=== PATIENT | female | born 1995 | race Caucasian/White ===

== ENCOUNTER 2022-03-22 19:56 | Emergency (ER) | payer BC, SELFPAY ==
[2022-03-22] VITALS (7 sets, daily range): BP systolic 101–189; BP diastolic 64–152; PULSE 69–80; RESP 16–18; TEMP 37.1; O2SAT 96–100; BMI 35.6
--- NOTE | 2022-03-22 21:05 | HMH.EDABDPAI ---
Discharge Plan Disposition Chief Complaint: Abdominal Pain Referrals Follow up/Referrals: Provider,Referral, MD [Primary Care Provider] - See instructions Clinical Impressions Clinical Impression: Abdominal pain Instructions Patient Instructions: DI for Acute Abdominal Pain Discharge ED Provider: Micheal Pate Abdominal Pain HPI General Chief Complaint: Abdominal Pain Stated Complaint: upper stomach issues Time Seen by Provider: 03/22/22 21:06 Mode of Arrival: Ambulatory Source of Information: Patient and Medical Record Limitations: No Limitations Description of Symptoms (Recalled from ER Triage Doc. by RN): PT reports to have had a slice of pizza and shortly after had what she believes is a gallbladder attack she reported that she started having pain in the epigastrig area and it grew in intensity until she vomited and had diarrhea. pt stated the pain was 10/10 but has subsided to a 5/10. the pt states she has had 4 of these episodes since her verticle sleeve gasterectomy on 10/05/2021. the surgery was performed by DR Flaherty at [facility]. the pt stated she has not followed up with Krystina about the attacks. History of Present Illness HPI narrative: has episode of upper abd pain after eating - has recent wt loss surg - no fever complaint: abdominal pain Onset (ago): hour(s) Consistency: intermittent Location: RUQ Severity: moderate Quality: sharp Radiation: RUQ Context: history of similar episodes Associated symptoms: denies other symptoms Related Data Allergies Allergy/AdvReac Type Severity Reaction Status Date / Time No Known Allergies Allergy Verified 03/22/22 21:09 [facility] Social History Smoking Status: Never smoker alcohol intake: never current occupational status: employed Travel in the last 8 weeks: None ROS Obtained: Yes All systems reviewed & no additional complaints except as documented Physical Exam General General appearance: alert Head Head exam: normocephalic Eye Eye exam: Present PERRL and EOMI; Absent scleral icterus ENT ENT exam: Present mucous membranes moist Neck Neck exam: Present trachea midline Respiratory Respiratory exam: Present normal lung sounds bilaterally; Absent respiratory distress Cardiovascular Cardiovascular exam: Present regular rate Abdominal Exam Abdominal exam: Present soft, tenderness and Bedolla's sign; Absent guarding Abdominal tenderness: Present RUQ and moderate Extremities Exam Extremities exam: Present full ROM Back Exam Back exam: Absent CVA tenderness (R) Neurological Exam Neurological exam: Present alert, oriented X3 and CN II-XII intact Psychiatric Psychiatric exam: Present normal affect Skin Skin exam: Absent rash Medical Decision Making Medical Records Medical records reviewed: Yes I reviewed the patient's medical records. Eitan Inquiry Pt receiving controlled substance: No Vital Signs: 03/22/22 19:59 03/22/22 20:31 03/22/22 21:01 Temperature 98.7 F Temperature Source Oral Pulse Rate 69 74 Pulse Rate [Left] 75 Respiratory Rate 16 Blood Pressure 189/152 H 128/72 Blood Pressure [Right Radial Artery] 135/81 Blood Pressure Mean 91 Blood Pressure Mean [Right Radial Artery] 99 02 Sat by Pulse Oximetry 96 98 98 Oxygen Delivery Method Room Air 03/22/22 21:06 03/22/22 21:33 03/22/22 22:00 Temperature Temperature Source Pulse Rate 80 71 69 Pulse Rate [Left] Respiratory Rate Blood Pressure 131/75 101/64 L 122/82 Blood Pressure [Right Radial Artery] Blood Pressure Mean Blood Pressure Mean [Right Radial Artery] 02 Sat by Pulse Oximetry 98 100 100 Oxygen Delivery Method Room Air Room Air Room Air Lab Data Lab results reviewed: Yes I reviewed the patient's lab results. Lab Results 03/22/22 20:04: Urine Color Yellow, Urine Appearance Sl cloudy, Urine pH 6.0, Ur Specific Griffin >= 1.030, Urine Protein Negative, Urine Glucose (UA) Negative, Urine Ketones Negative, Urine
--- NOTE | 2022-03-22 21:14 | CT_ITS ---
PROCEDURE INFORMATION: Exam: CT Abdomen And Pelvis With Contrast Exam date and time: 03/22/2022 9:35 PM Age: 26 years old Clinical indication: Abdominal pain; Additional info: Abd pain TECHNIQUE: Imaging protocol: Computed tomography of the abdomen and pelvis with contrast. Radiation optimization: All CT scans at this facility use at least one of these dose optimization techniques: automated exposure control; mA and/or kV adjustment per patient size (includes targeted exams where dose is matched to clinical indication); or iterative reconstruction. Contrast material: ISOVUE; Contrast volume: 75 ml; Contrast route: IV; COMPARISON: No relevant prior studies available. FINDINGS: Liver: Normal. No mass. Gallbladder and bile ducts: No calcified stones. No ductal dilation. Pancreas: Normal enhancement. No ductal dilation. Spleen: No splenomegaly. Adrenal glands: No mass. Kidneys and ureters: No hydronephrosis. Stomach and bowel: Potential mild wall thickening of the transverse and descending colon which are decompressed and not well evaluated. Postsurgical changes to the stomach. No obstruction. Appendix: No evidence of appendicitis. Intraperitoneal space: No free air. No significant fluid collection. Vasculature: No abdominal aortic aneurysm. Lymph nodes: No enlarged lymph nodes. Urinary bladder: No acute abnormality. Reproductive: No acute abnormality. Bones/joints: No acute fracture. Soft tissues: No soft tissue swelling. IMPRESSION: Potential mild wall thickening of the transverse and descending colon which may be secondary to underdistention however subtle/early colitis should be clinically excluded.
[2022-03-22 21:22] LABS: Microscopic, Urine URINE MICROSCOPIC (MICROSCOPIC)
[2022-03-22 21:24] LABS: Basophils # 0.1 K/mm3 (0-0.2); Basophils % 0.8 % (0.1-2.0); Eosinophils # 0.1 K/mm3 (0.0-0.4); Eosinophils % 1.3 % (0.1-12.0); Hematocrit 39.2 % (37.0-47.0); Hemoglobin 13.3 g/dL (12.2-16.2); Lymphocytes # 2.5 K/mm3 (0.7-4.5); Lymphocytes % 27.3 % (10-50); Mean Corpuscular Hemoglobin 28.1 pg (27.0-31.2); Mean Corpuscular Volume 82.7 fl (81-99); Mean Platelet Volume 9.3 fl (7.4-10.4); Monocytes # 0.5 K/mm3 (0.1-1.0); Monocytes % 5.5 % (1.7-9.3); Neutrophils % 65.2 % (37.0-80.0); Platelet Count 246 K/mm3 (142-424); Red Blood Count 4.75 M/mm3 (4.20-5.40); Red Cell Distribution Width 13.7 % (11.5-17.5); White Blood Count 9.2 K/mm3 (4.8-10.8)
[2022-03-22 21:26] LABS: Appearance,Urine SL CLOUDY (Clear); Bilirubin,Urine Negative (Negative); Blood, Urine TRACE-I (Negative); Color,Urine YELLOW (Yellow); Glucose,Urine (UA) Negative (Negative); Ketones,Urine Negative (Negative); Leukocyte Esterase,Urine Negative (Negative); Nitrate,Urine Negative (Negative); Protein,Urine Negative (Negative); Specific Gravity, Urine >= 1.030 (1.005-1.030)
[2022-03-22 21:29] LABS: Urine Pregnancy, HCG Qual. Negative (Negative)
[2022-03-22 21:35] LABS: Chloride 105 mmol/L (98-107); Potassium 4.1 mmoL/L (3.5-5.1); Sodium 140 mmol/L (136-145)
[2022-03-22 21:38] LABS: Alanine Aminotransferase 16 U/L (12-78); Albumin Level 4.7 g/dl (3.5-5.0); Albumin/Globulin Ratio 1.4 (1.1-1.8); Alkaline Phosphatase 96 U/L (38-126); Amylase 61 U/L (30-110); Anion Gap 17.1 mEq/L (5-15); Aspartate Amino Transferase 38 U/L (14-36); Bilirubin,Total 0.6 mg/dl (0.2-1.3); Blood Urea Nitrogen 11 mg/dl (7-17); Calcium 8.8 mg/dl (8.4-10.2); Carbon Dioxide 22 mmol/L (22.0-30.0); Creatinine Clearance Estimated 236 mL/min (50-200); Estimated Glomerular Filt Rate 148 ml/min (>60); GFR (African American) 179 ML/MIN (>60); Globulin 3.3 g/dL (1.3-3.2); Glucose 93 mg/dl (74-100); Lipase 47 U/L (23-300)
--- NOTE | 2022-03-22 21:47 | PC.NURSE ---
pt return from ct scan
[2022-03-22 21:57] LABS: RBC,Urine Occasional #/hpf (0-3); Squamous Epithelial Cell,Urine Occasional #/hpf (0-5)
== END 2022-03-22 23:06 | disposition home or self-care (01) ==
PROVIDERS: Emergency Provider Emergency Medicine
DX: R10.9 Unspecified abdominal pain (principal)
CPT/HCPCS: 74177; 80053; 81001; 81025; 82150; 83690; 85025; 96365; 99284; Q9967

== ENCOUNTER → 2022-11-22 12:26 | Outpatient (CLI) | payer BC, SELFPAY ==
[2022-11-22 12:49] LABS: Alanine Aminotransferase 18 U/L (12-78); Albumin Level 4.8 g/dl (3.5-5.0); Albumin/Globulin Ratio 1.7 (1.1-1.8); Alkaline Phosphatase 79 U/L (38-126); Anion Gap 17.6 mEq/L (5-15); Aspartate Amino Transferase 28 U/L (14-36); Bilirubin,Total 1.5 mg/dl (0.2-1.3); Blood Urea Nitrogen 9 mg/dl (7-17); Calcium 9.5 mg/dl (8.4-10.2); Carbon Dioxide 25 mmol/L (22.0-30.0); Chloride 103 mmol/L (98-107); Chol/HDL Ratio 3.3 (1-3.5); Cholesterol 143 mg/dl (140-200); Estimated Glomerular Filt Rate 119 ml/min (>60); GFR (African American) 144 ML/MIN (>60); Globulin 2.9 g/dL (1.3-3.2); Glucose 90 mg/dl (74-100); HDL Cholesterol 44 mg/dl (40-60); Potassium 4.6 mmoL/L (3.5-5.1); Sodium 141 mmol/L (136-145); Total Protein,Serum 7.7 g/dl (6.3-8.2); Triglycerides 79 mg/dl (30-150); VLDL Cholesterol 16 mg/dL (0-40)
[2022-11-22 12:57] LABS: Basophils % 0.2 % (0.1-2.0); Eosinophils % 0.2 % (0.1-12.0); Hematocrit 39.2 % (37.0-47.0); Hemoglobin 13.2 g/dL (12.2-16.2); Lymphocytes # 1.5 K/mm3 (0.7-4.5); Lymphocytes % 16.6 % (10-50); Mean Corpuscular HGB Conc 33.5 g/dL (31.8-35.4); Mean Corpuscular Hemoglobin 28.3 pg (27.0-31.2); Mean Corpuscular Volume 84.4 fl (81-99); Mean Platelet Volume 9.4 fl (7.4-10.4); Monocytes # 0.3 K/mm3 (0.1-1.0); Monocytes % 3.3 % (1.7-9.3); Neutrophils # 7.4 K/mm3 (1.8-7.8); Neutrophils % 79.7 % (37.0-80.0); Platelet Count 210 K/mm3 (142-424); Red Blood Count 4.65 M/mm3 (4.20-5.40); Red Cell Distribution Width 13.4 % (11.5-17.5); White Blood Count 9.3 K/mm3 (4.8-10.8)
[2022-11-22 13:01] LABS: Direct LDL Cholesterol 75.06 mg/dL (100-129)
[2022-11-22 13:02] LABS: Hemoglobin A1C 4.2 % (4.0-6.0)
[2022-11-22 13:17] LABS: Thyroid Stimulating Hormone 0.95 uIU/mL (0.465-4.68)
[2022-11-22 13:36] LABS: Vitamin B12 801 pg/mL (239-931)
== END ==
PROVIDERS: PCP Nurse Practitioner Family; Visit Provider Nurse Practitioner Family
DX: R10.9 Unspecified abdominal pain (principal); R53.83 Other fatigue; E66.3 Overweight; F41.9 Anxiety disorder, unspecified; Z68.29 Body mass index [BMI] 29.0-29.9, adult; Z79.899 Other long term (current) drug therapy
CPT/HCPCS: 80053; 80061; 82306; 82607; 83036; 84443; 85025

== ENCOUNTER → 2022-11-25 08:25 | Outpatient (CLI) | payer BC, SELFPAY ==
[2022-11-25 08:33] LABS: Adenovirus F 40/41, stool Not Detected (NotDetected); Astrovirus Not Detected (NotDetected); Campylobacter Not Detected (NotDetected); Clostridium Difficile A/B, PCR Not Detected (NotDetected); Cryptosporidium Not Detected (NotDetected); Cyclospora Cayetanesis Not Detected (NotDetected); Entamoeba histolytica Not Detected (NotDetected); Enteroaggregative E coli Not Detected (NotDetected); Enteropathogenic E coli Not Detected (NotDetected); Enterotoxigenic E coli Not Detected (NotDetected); Giardia lamblia Not Detected (NotDetected); Norovirus Not Detected (NotDetected); Plesimonas Shigalloides, PCR Not Detected (NotDetected); Rotavirus A Not Detected (NotDetected); Salmonella, PCR Not Detected (NotDetected); Sapovirus Not Detected (NotDetected); Shiga-like toxin E coli Not Detected (NotDetected); Shigella Enterovasive E coli Not Detected (NotDetected); Vibrio Cholerae Not Detected (NotDetected); Vibrio, PCR Not Detected (NotDetected); Yersinia Entercolitica, PCR Not Detected (NotDetected)
== END ==
PROVIDERS: PCP Nurse Practitioner Family; Visit Provider Nurse Practitioner Family
DX: R10.9 Unspecified abdominal pain (principal)
CPT/HCPCS: 87507

== ENCOUNTER 2022-11-25 08:52 | Emergency (ER) | payer BC, SELFPAY ==
[2022-11-25] VITALS (10 sets, daily range): BP systolic 107–132; BP diastolic 70–88; PULSE 66–77; RESP 16–20; TEMP 36.4–36.6; O2SAT 98–100; BMI 29.0; BMI 30.2
--- NOTE | 2022-11-25 09:02 | EXP.UTC ---
Discharge Plan Disposition Patient Disposition: Still a Patient Condition: Fair Prescriptions Prescriptions: No Action colestipol 1 gram tablet PO venlafaxine [Effexor XR] 37.5 mg capsule,extended release 24hr 37.5 mg PO DAILY Qty: 30 2RF Referrals Follow up/Referrals: Carter Araya APRN [Primary Care Provider] - See instructions Clinical Impressions Clinical Impression: Abdominal pain, Elevated liver enzymes Discharge ED Provider: Arturo You [facility] [facility] [place] General Stated complaint: can't eat,Nausea,diarrhea Time Seen by Provider: 11/25/22 09:02 History of Present Illness Provider Complaint: She states that for the past 3 to 4 days she has noticed a yellowish tint to the whites of her eyes. She has had frequent nausea, early satiety, and poor appetite for the past several months after having her gall bladder removed. Related Data Home Medications Medication Instructions Recorded Confirmed colestipol 1 gram tablet tab PO 11/22/22 11/22/22 Previous Rx's Medication Instructions Recorded venlafaxine 37.5 mg 37.5 mg PO DAILY #30 caps 11/22/22 capsule,extended release 24 hr (Effexor XR) Allergies Allergy/AdvReac Type Severity Reaction Status Date / Time No Known Allergies Allergy Verified 11/22/22 09:34 [facility] Disclaimer: The information contained in this section may have been updated after the patient was seen, as this information can be updated by other users. Medical History Anxiety Depression Endometriosis Surgical History H/O gastric sleeve History of cholecystectomy Family History Other Diabetes FHx: mental illness Social History Smoking Status: Never smoker alcohol intake: never substance use type: denies use current occupational status: unemployed Travel in the last 8 weeks: None ROS Obtained: Yes All systems reviewed & no additional complaints except as documented Constitutional Constitutional: Denies chills, Denies fever(s) and Reports poor appetite ENT Ears, Nose, Mouth, and Throat: Denies dizziness and Denies sore throat Cardiovascular Cardiovascular: Denies dyspnea Respiratory Respiratory: Denies chest congestion, Denies cough and Denies dyspnea Gastrointestinal Gastrointestingal: Reports as per HPI Genitourinary Female Genitourinary: Denies difficulty voiding, Denies dysuria, Denies hematuria, Denies urinary frequency, Denies urinary incontinence, Denies urinary hesitancy and Denies urinary urgency Musculoskeletal Musculoskeletal: Denies arthralgias Integumentary/Breasts Skin/Breast: Reports as per HPI Neurologic Neurologic: Denies dizziness Physical Exam General General appearance: alert and in no apparent distress Head Head exam: atraumatic and normocephalic Eye Eye exam: Present normal appearance, PERRL and EOMI ENT ENT exam: Present normal exam, normal oropharynx, mucous membranes moist, TM's normal bilaterally and normal external ear exam Neck Neck exam: Present normal inspection, full ROM and trachea midline; Absent tenderness, meningismus or lymphadenopathy Chest Chest inspection: Present normal inspection and symmetric chest wall rise; Absent tenderness, rash or abscess Respiratory Respiratory exam: Present normal lung sounds bilaterally; Absent respiratory distress, wheezes or stridor Cardiovascular Cardiovascular exam: Present regular rate and normal rhythm; Absent irregular rhythm, systolic murmur, diastolic murmur or JVD Abdominal Exam Abdominal exam: Present soft and normal bowel sounds; Absent distention, tenderness, guarding, rebound, rigidity, psoas sign, obturator sign, heel tap sign, Bedolla's sign, Rovsing's sign or tenderness at McBurney's Point Extremities Exam Extremities exam: Present normal inspection and fu
[2022-11-25 09:25] LABS: Basophils % 0.3 % (0.1-2.0); Eosinophils # 0.1 K/mm3 (0.0-0.4); Eosinophils % 0.6 % (0.1-12.0); Hematocrit 37.8 % (37.0-47.0); Hemoglobin 12.7 g/dL (12.2-16.2); Lymphocytes # 1.8 K/mm3 (0.7-4.5); Lymphocytes % 20.2 % (10-50); Mean Corpuscular HGB Conc 33.6 g/dL (31.8-35.4); Mean Corpuscular Hemoglobin 27.8 pg (27.0-31.2); Mean Corpuscular Volume 82.8 fl (81-99); Mean Platelet Volume 9.3 fl (7.4-10.4); Monocytes # 0.4 K/mm3 (0.1-1.0); Neutrophils # 6.5 K/mm3 (1.8-7.8); Neutrophils % 74.8 % (37.0-80.0); Platelet Count 214 K/mm3 (142-424); Red Blood Count 4.56 M/mm3 (4.20-5.40); Red Cell Distribution Width 13.8 % (11.5-17.5); White Blood Count 8.6 K/mm3 (4.8-10.8)
[2022-11-25 09:37] LABS: Alanine Aminotransferase 470 U/L (12-78); Albumin Level 4.6 g/dl (3.5-5.0); Albumin/Globulin Ratio 1.5 (1.1-1.8); Alkaline Phosphatase 138 U/L (38-126); Amylase 85 U/L (30-110); Aspartate Amino Transferase 167 U/L (14-36); Bilirubin,Total 1.5 mg/dl (0.2-1.3); Blood Urea Nitrogen 12 mg/dl (7-17); Calcium 9.3 mg/dl (8.4-10.2); Carbon Dioxide 25 mmol/L (22.0-30.0); Chloride 102 mmol/L (98-107); Creatinine Clearance Estimated 169 mL/min (50-200); Estimated Glomerular Filt Rate 119 ml/min (>60); GFR (African American) 144 ML/MIN (>60); Glucose 89 mg/dl (74-100); Lipase 114 U/L (23-300); Sodium 141 mmol/L (136-145); Total Protein,Serum 7.6 g/dl (6.3-8.2)
--- NOTE | 2022-11-25 09:56 | HMH.EDGENADL ---
Discharge Plan Disposition Patient Disposition: Xfer Short-Term Hosp Condition: Fair Prescriptions Prescriptions: No Action colestipol 1 gram tablet PO venlafaxine [Effexor XR] 37.5 mg capsule,extended release 24hr 37.5 mg PO DAILY Qty: 30 2RF Referrals Follow up/Referrals: Carter Araya APRN [Primary Care Provider] - See instructions Clinical Impressions Clinical Impression: Abdominal pain, Elevated liver enzymes Stand Alone Forms Stand Alone Forms: Transfer Record - ED Instructions Patient Instructions: DI for Acute Abdominal Pain Discharge ED Provider: Arturo You General Adult HPI General Chief complaint: Abdominal Pain Stated complaint: can't eat,Nausea,diarrhea Time Seen by Provider: 11/25/22 09:02 Mode of Arrival: Ambulatory Source of Information: Patient Limitations: No Limitations Description of Symptoms (Recalled from ER Triage Doc. by RN): Patient states that for the past 4 days she hasn't been able to eat very well, has been nauseated, has diarrhea and upper back pain. States that at one point the whites of her eyes looked yellow. States she had her gallbladder removed in April and had these symptoms but it has gotten worse within the past 4 days. History of Present Illness HPI narrative: 27-year-old female presenting to the emergency department with upper abdominal pain, early satiety, diarrhea. Symptoms have gotten worse over the last few days but she has had them on and off for the last few weeks. She has cramping pain that is located in the upper abdomen, right side. Seems to radiate slightly toward her back. She feels full easily. She has lost about 20 pounds unintentionally. Feels unwell almost every time after she eats. She has had diarrhea, yellowish in color. She denies any nausea or vomiting. She had a cholecystectomy in April of last year at [facility]. Says it was a complicated procedure. Her liver enzymes were elevated afterward. She did not end up having an ERCP or MRCP. She does not take acetaminophen or drink alcohol. Related Data Home Medications Medication Instructions Recorded Confirmed colestipol 1 gram tablet tab PO 11/22/22 11/22/22 Previous Rx's Medication Instructions Recorded venlafaxine 37.5 mg 37.5 mg PO DAILY #30 caps 11/22/22 capsule,extended release 24 hr (Effexor XR) Allergies Allergy/AdvReac Type Severity Reaction Status Date / Time No Known Allergies Allergy Verified 11/22/22 09:34 [facility] Disclaimer: The information contained in this section may have been updated after the patient was seen, as this information can be updated by other users. Medical History Anxiety Depression Endometriosis Surgical History H/O gastric sleeve History of cholecystectomy Family History Other Diabetes FHx: mental illness Social History Smoking Status: Never smoker alcohol intake: never substance use type: denies use current occupational status: unemployed Travel in the last 8 weeks: None ROS Obtained: Yes All systems reviewed & no additional complaints except as documented Constitutional Constitutional: Denies chills, Denies fever(s) and Denies headache(s) ENT Ears, Nose, Mouth, and Throat: Denies headache(s), Denies neck pain and Denies sore throat Cardiovascular Cardiovascular: Denies chest pain, Denies dyspnea, Denies edema and Denies palpitations Respiratory Respiratory: Denies cough and Denies dyspnea Gastrointestinal Gastrointestingal: Reports abdominal pain and cramping; Denies diarrhea, nausea or vomiting Musculoskeletal Musculoskeletal: Denies back pain and Denies neck pain Integumentary/Breasts Skin/Breast: Denies redness and Reports jaundice Neurologic Neurologic: Denies head
--- NOTE | 2022-11-25 10:17 | PC.NURSE ---
KYLIE MAZARIEGOS at
--- NOTE | 2022-11-25 10:20 | CT_ITS ---
PROCEDURE INFORMATION: Exam: CT Abdomen And Pelvis With Contrast Exam date and time: 11/25/2022 10:42 AM Age: 27 years old Clinical indication: Abdominal pain; Generalized; Patient HX: PT had gallbladder surgery in april-- since has had pain, vomiting, diarrhea- lost 25lbs in the last 3 months; Additional info: Ruq pain, HX of ccy TECHNIQUE: Imaging protocol: Computed tomography of the abdomen and pelvis with contrast. Radiation optimization: All CT scans at this facility use at least one of these dose optimization techniques: automated exposure control; mA and/or kV adjustment per patient size (includes targeted exams where dose is matched to clinical indication); or iterative reconstruction. Contrast material: ISOVUE; Contrast volume: 75 ml; Contrast route: IV; REPORTING DATA: Count of CT and Cardiac NM exams in prior 12 months: This patient has received [address] and 0 known cardiac nuclear medicine studies in the 12 months prior to the current study. COMPARISON: CT ABDOMEN PELVIS W CON 03/22/2022 9:35 PM FINDINGS: Lungs: No acute airspace or pleural disease. Liver: Focal fatty infiltration of the liver. Gallbladder and bile ducts: Status post cholecystectomy. Pancreas: No pancreatic mass or ductal dilatation. Spleen: No splenomegaly. Adrenal glands: Unremarkable adrenals. Kidneys and ureters: Normal renal morphology. No hydronephrosis. Stomach and bowel: Postoperative change in the stomach. Diverticula, without pericolonic inflammation. Right colonic wall thickening, which could represent colitis in the appropriate clinical setting. Appendix: No acute appendicitis. Intraperitoneal space: No significant free fluid. Vasculature: Normal caliber of the abdominal aorta. Lymph nodes: Subcentimeter lymph nodes. Urinary bladder: Wall thickening in the nondistended bladder. Reproductive: Inhomogeneous attenuation and mild enlargement of the uterus. Follicular change in the ovaries. Bones/joints: No acute osseous pathology. Soft tissues: Unremarkable. IMPRESSION: 1. Right colonic wall thickening, which could represent colitis in the appropriate clinical setting. 2. Additional findings as described above.
--- NOTE | 2022-11-25 10:25 | PC.NURSE ---
Ambulated patient to bathroom; urine provided; call jolly within reach of patient
--- NOTE | 2022-11-25 10:30 | PC.NURSE ---
Instructed patient to remain NPO.
[2022-11-25 10:32] LABS: Urine Pregnancy, HCG Qual. Negative (Negative)
--- NOTE | 2022-11-25 11:05 | PC.NURSE ---
rounded on patient, family at bedside, feels some better, no needs
--- NOTE | 2022-11-25 11:55 | PC.NURSE ---
placed call to [facility] for transfer, they will call back
--- NOTE | 2022-11-25 12:02 | PC.NURSE ---
Dr Wagner speaking to Dr Lara at [facility]
--- NOTE | 2022-11-25 12:12 | PC.NURSE ---
Provided plan of care to patient and . No further questions at this time. Call jolly within reach of patient
--- NOTE | 2022-11-25 12:40 | PC.NURSE ---
[facility] called with number for report, states pt will board in ER at [facility] until they get a bed later for pt.
== END 2022-11-25 13:17 | disposition short-term general hospital (02) ==
LOC: UTC 08:56 → ER 09:46
PROVIDERS: Emergency Medicine; Emergency Provider Nurse Practitioner Family; PCP Nurse Practitioner Family
DX: M54.6 Pain in thoracic spine; R11.0 Nausea; R19.7 Diarrhea, unspecified; R63.4 Abnormal weight loss; F41.9 Anxiety disorder, unspecified; F32.A Depression, unspecified; R10.11 Right upper quadrant pain; R74.01 Elevation of levels of liver transaminase levels
CPT/HCPCS: 74177; 80053; 81025; 82150; 83690; 85025; 99285; Q9967

== ENCOUNTER 2022-12-18 18:07 | Emergency (ER) | payer BC, SELFPAY ==
[2022-12-18 18:08] VITALS: BP 119/62; PULSE 80; RESP 18; TEMP 36.6; O2SAT 100; BMI 28.3
--- NOTE | 2022-12-18 18:20 | EXP.UTC ---
Discharge Plan Disposition Patient Disposition: Home, Self-Care Condition: Good Prescriptions Prescriptions: No Action colestipol 1 gram tablet PO venlafaxine [Effexor XR] 37.5 mg capsule,extended release 24hr 37.5 mg PO DAILY Qty: 30 2RF Referrals Follow up/Referrals: Carter Araya APRN [Primary Care Provider] - See instructions Activity Restrictions/Add. Instructions Additional Instructions/Restrictions: Follow up with your primary care physician regarding the results of this blood work. Drink plenty of fluids. GO TO THE ER FOR ANY WORSENING SYMPTOMS OR CONCERNS Clinical Impressions Clinical Impression: Fatigue, Vertigo Instructions Patient Instructions: DI for Vertigo Discharge ED Provider: Arturo You [facility] General Stated complaint: dizzy Time Seen by Provider: 12/18/22 18:20 History of Present Illness Provider Complaint: She states that she has been having fatigue and intermittent dizziness for the past several days. In the past when she felt like this she was anemic. She has a history of having weight loss surgery and that has caused her to be anemic at times in the past. She is also having a very heavy period at this time. Related Data Home Medications Medication Instructions Recorded Confirmed colestipol 1 gram tablet tab PO 11/22/22 11/22/22 Previous Rx's Medication Instructions Recorded venlafaxine 37.5 mg 37.5 mg PO DAILY #30 caps 11/22/22 capsule,extended release 24 hr (Effexor XR) Allergies Allergy/AdvReac Type Severity Reaction Status Date / Time No Known Allergies Allergy Verified 11/22/22 09:34 [facility] Disclaimer: The information contained in this section may have been updated after the patient was seen, as this information can be updated by other users. Medical History (Updated 12/18/22 @ 18:40 by Arturo You APRN) Anxiety Depression Endometriosis Surgical History H/O gastric sleeve History of cholecystectomy Family History Other Diabetes FHx: mental illness Social History Smoking Status: Never smoker alcohol intake: never substance use type: denies use current occupational status: unemployed Travel in the last 8 weeks: None ROS Obtained: Yes All systems reviewed & no additional complaints except as documented Constitutional Constitutional: Denies chills and Denies fever(s) Eyes Eyes: Denies eye discharge ENT Ears, Nose, Mouth, and Throat: Denies dizziness, Denies otalgia and Denies sore throat Cardiovascular Cardiovascular: Denies chest pain Respiratory Respiratory: Denies shortness of breath, Denies chest congestion, Denies cough, Denies stridor and Denies wheezing Gastrointestinal Gastrointestingal: Denies nausea or vomiting Musculoskeletal Musculoskeletal: Reports system reviewed and no additional complaints, except as documented and Denies arthralgias Integumentary/Breasts Skin/Breast: Denies rash Neurologic Neurologic: Denies dizziness and Denies paresthesias Allergic/Immunologic Allergic/Immunologic: Denies wheezing Physical Exam General General appearance: alert and in no apparent distress Head Head exam: atraumatic, normocephalic and normal inspection Eye Eye exam: Present normal appearance, PERRL and EOMI ENT ENT exam: Present normal exam, normal oropharynx, mucous membranes moist, TM's normal bilaterally and normal external ear exam Neck Neck exam: Present normal inspection, full ROM and trachea midline; Absent meningismus or lymphadenopathy Chest Chest inspection: Present normal inspection and symmetric chest wall rise; Absent tenderness Respiratory Respiratory exam: Present normal lung sounds bilaterally; Absent respiratory distress Cardiovascular Cardiovascular exam: Present regular rate and normal rhythm; Absent JVD Abdomi
[2022-12-18 18:47] VITALS: BP 119/62; PULSE 80; RESP 18; TEMP 36.6; O2SAT 100
[2022-12-18 18:57] LABS: Basophils % 0.3 % (0.1-2.0); Eosinophils # 0.1 K/mm3 (0.0-0.4); Eosinophils % 1.3 % (0.1-12.0); Hematocrit 39.6 % (37.0-47.0); Hemoglobin 12.6 g/dL (12.2-16.2); Lymphocytes # 3.1 K/mm3 (0.7-4.5); Lymphocytes % 29.3 % (10-50); Mean Corpuscular HGB Conc 31.9 g/dL (31.8-35.4); Mean Corpuscular Volume 84.8 fl (81-99); Mean Platelet Volume 8.9 fl (7.4-10.4); Monocytes # 0.5 K/mm3 (0.1-1.0); Monocytes % 4.2 % (1.7-9.3); Neutrophils # 6.9 K/mm3 (1.8-7.8); Platelet Count 219 K/mm3 (142-424); Red Blood Count 4.67 M/mm3 (4.20-5.40); Red Cell Distribution Width 13.7 % (11.5-17.5); White Blood Count 10.6 K/mm3 (4.8-10.8)
[2022-12-18 19:41] LABS: Ferritin 19.8 ng/ml (6.24-137)
== END 2022-12-18 18:48 | disposition home or self-care (01) ==
PROVIDERS: Emergency Provider Nurse Practitioner Family; PCP Nurse Practitioner Family
DX: R42 Dizziness and giddiness (principal); R53.83 Other fatigue; F41.9 Anxiety disorder, unspecified; F32.A Depression, unspecified; N80.9 Endometriosis, unspecified
CPT/HCPCS: 82728; 85025; 99203; 99212; G0463

== ENCOUNTER → 2023-01-23 14:57 | Outpatient (CLI) | payer BC, SELFPAY ==
[2023-01-23 14:04] LABS: Benzodiazepines Screen,Urine Negative ng/ml (<200)
[2023-01-23 14:05] LABS: Amphetamine/Metha Screen,Urine Negative ng/ml (<1000); Barbiturates Screen,Urine Negative ng/ml (<200)
[2023-01-23 14:06] LABS: Cannabinoid Screen,Urine Negative ng/ml (<50)
[2023-01-23 14:07] LABS: Cocaine Screen,Urine Negative ng/ml (<300); Methadone Screen,Urine Negative ng/ml (<300)
[2023-01-23 14:08] LABS: Opiate Screen,Urine Negative ng/ml (<300)
[2023-01-23 14:09] LABS: Phencyclidine Screen,Urine Negative ng/ml (<25)
== END ==
PROVIDERS: PCP Nurse Practitioner Family; Visit Provider Nurse Practitioner Family
DX: F41.9 Anxiety disorder, unspecified (principal)
CPT/HCPCS: 80305

== ENCOUNTER 2023-02-13 11:19 | Emergency (ER) | payer BC, SELFPAY ==
[2023-02-13 11:20] VITALS: BP 120/77; PULSE 69; RESP 18; TEMP 36.9; O2SAT 100; BMI 28.7
--- NOTE | 2023-02-13 11:40 | PC.NURSE ---
DR ANNE AT BEDSIDE
--- NOTE | 2023-02-13 11:44 | XR_ITS ---
FINAL REPORT CLINICAL HISTORY: chest/upper back pain FINDINGS: THORACIC SPINE Three views demonstrate no acute fracture. The disc spaces are well preserved. There is no malalignment. IMPRESSION: No acute process. Reviewed, Interpreted and Dictated by Urban Welch III, MD Transcribed by Bailey Singh Authenticated and [facility]
--- NOTE | 2023-02-13 11:44 | XR_ITS ---
FINAL REPORT CLINICAL HISTORY: chest/upper back pain FINDINGS: Two views of the chest were obtained. The heart size and pulmonary vascularity are within normal limits. The mediastinum is normal. No acute pulmonary abnormality is identified. There is no pneumothorax. The bony thorax is intact. IMPRESSION: No active cardiopulmonary disease. Reviewed, Interpreted and Dictated by Urban Welch III, MD Transcribed by Bailey Singh Authenticated and [facility]
--- NOTE | 2023-02-13 11:51 | HMH.EDGENADL ---
Discharge Plan Disposition Patient Disposition: Home, Self-Care Condition: Good Prescriptions Prescriptions: New lidocaine [Lidoderm] 5 % adhesive patch,medicated 1 patch topical DAILY Qty: 15 0RF Rx Instructions: leave on most painful area for up to 12 hrs methocarbamol 750 mg tablet 750 mg PO Q8H PRN (Reason: pain) Qty: 20 0RF No Action clonazepam [Klonopin] 0.5 mg tablet 0.5 mg PO BID Qty: 60 1RF Referrals Follow up/Referrals: Carter Araya APRN [Primary Care Provider] - See instructions Activity Restrictions/Add. Instructions Additional Instructions/Restrictions: You were evaluated in the emergency department today. At this time, we feel that your pain is likely musculoskeletal. We also feel that a lot of your symptoms are related to anxiety. 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 You may also take Tylenol and ibuprofen. Follow-up with your primary care provider over the next 3 days. Return to the emergency department for any new or worsening symptoms Clinical Impressions Clinical Impression: Chronic upper back pain, Anxiety Instructions Patient Instructions: DI for Anxiety -- Adult, DI for Acute Pain -- Adult Discharge ED Provider: Hannah Hobbs General Adult HPI General Chief complaint: PAIN Stated complaint: soa, upper back pain, dizzy, arms/legs tingly Time Seen by Provider: 02/13/23 11:29 History of Present Illness HPI narrative: This patient is a 27-year-old female with a history of depression and anxiety as well as a history of obesity status post gastric sleeve surgery presenting to the emergency department for evaluation with concern for pain between her shoulder blades. She states that this has been ongoing for several months now but has gone from being intermittent to constant. She states that she is also having occasional episodes of chest pain and pain radiating up into her head. She states that she feels that the posterior aspect of her skull at the base of her skull and neck. She also states that she feels like she cannot get a deep breath during these episodes and gets numbness and tingling in her hands and lower extremities. She states that she thought it was anxiety, but she started an anxiety medication and it does not seem to help. She currently is complaining of the upper back pain at this time. Otherwise currently, no chest pain, shortness of breath, numbness, tingling, unilateral weakness, or other concerns. She is that she is going to see a chiropractor for this but she just wanted to make sure that it was not anything more serious. Related Data Previous Rx's Medication Instructions Recorded clonazepam 0.5 mg tablet (Klonopin) 0.5 mg PO BID #60 tabs 01/23/23 lidocaine 5 % topical patch 1 patch topical DAILY #15 ea 02/13/23 (Lidoderm) methocarbamol 750 mg tablet 750 mg PO Q8H PRN pain #20 tabs 02/13/23 Allergies Allergy/AdvReac Type Severity Reaction Status Date / Time No Known Allergies Allergy Verified 12/20/22 09:36 [facility] Disclaimer: The information contained in this section may have been updated after the patient was seen, as this information can be updated by other users. Medical History Anxiety Depression Endometriosis Surgical History H/O gastric sleeve History of cholecystectomy Family History Other Diabetes FHx: mental illness Social History Smoking Status: Current every day smoker alcohol intake: never substance use type: denies use current occupational status: unemployed Travel in the last 8 weeks: None ROS Obtained: Yes All systems reviewed & no additional complaints except as documented Physical Exam General General appearance: alert and i
--- NOTE | 2023-02-13 11:57 | ECG_ITS ---
APPROVED REPORT Exam: Resting ECG HR:64 bpm ECG Measurements Heart Rate 64 AXES SC 179 P 63 QRSd 96 QRS 75 QT 386 T 50 QTc 395 Conclusion SINUS RHYTHM LOW QRS VOLTAGE IN PRECORDIAL LEADS [QRS DEFLECTION < 1.0 mV IN CHEST LEADS] BORDERLINE ECG UNCONFIRMED REPORT Electronically signed by : Serjio Leon MD 02/14/2023 20:00:28
[2023-02-13 12:20] LABS: Chloride 105 mmol/L (98-107); Potassium 4.5 mmoL/L (3.5-5.1); Sodium 139 mmol/L (136-145)
[2023-02-13 12:22] LABS: Blood Urea Nitrogen 15 mg/dl (7-17); Creatinine Clearance Estimated 139 mL/min (50-200); Estimated Glomerular Filt Rate 100 ml/min (>60); GFR (African American) 121 ML/MIN (>60)
[2023-02-13 12:23] LABS: Alanine Aminotransferase 19 U/L (12-78); Albumin Level 3.8 g/dl (3.5-5.0); Albumin/Globulin Ratio 1.2 (1.1-1.8); Alkaline Phosphatase 78 U/L (38-126); Anion Gap 12.5 mEq/L (5-15); Aspartate Amino Transferase 37 U/L (14-36); Bilirubin,Total 0.8 mg/dl (0.2-1.3); Calcium 9.3 mg/dl (8.4-10.2); Carbon Dioxide 26 mmol/L (22.0-30.0); Globulin 3.2 g/dL (1.3-3.2); Glucose 86 mg/dl (74-100)
[2023-02-13 12:43] LABS: Basophils # 0.1 K/mm3 (0-0.2); Eosinophils # 0.1 K/mm3 (0.0-0.4); Eosinophils % 1.7 % (0.1-12.0); HCG Qualitative, Serum Negative (Negative); Hematocrit 37.5 % (37.0-47.0); Hemoglobin 12.5 g/dL (12.2-16.2); Lymphocytes # 2.5 K/mm3 (0.7-4.5); Lymphocytes % 43.6 % (10-50); Mean Corpuscular HGB Conc 33.2 g/dL (31.8-35.4); Mean Corpuscular Volume 84.3 fl (81-99); Mean Platelet Volume 8.7 fl (7.4-10.4); Monocytes # 0.2 K/mm3 (0.1-1.0); Neutrophils # 2.8 K/mm3 (1.8-7.8); Neutrophils % 49.6 % (37.0-80.0); Platelet Count 230 K/mm3 (142-424); Red Blood Count 4.45 M/mm3 (4.20-5.40); Red Cell Distribution Width 13.5 % (11.5-17.5); White Blood Count 5.7 K/mm3 (4.8-10.8)
--- NOTE | 2023-02-13 12:52 | PC.NURSE ---
rounded on pt nothing needed at this time,call light at bs
[2023-02-13 15:08] VITALS: BP 104/64; PULSE 65; RESP 16; TEMP 36.7; O2SAT 100
== END 2023-02-13 15:09 | disposition home or self-care (01) ==
PROVIDERS: Emergency Provider Emergency Medicine; PCP Nurse Practitioner Family
DX: R06.02 Shortness of breath (principal); M54.6 Pain in thoracic spine; R42 Dizziness and giddiness; F41.9 Anxiety disorder, unspecified; F32.A Depression, unspecified; F17.200 Nicotine dependence, unspecified, uncomplicated
CPT/HCPCS: 71046; 72070; 80053; 84703; 85025; 93005; 96374; 99285

== ENCOUNTER 2023-05-18 09:53 | Emergency (ER) | payer BC, SELFPAY ==
[2023-05-18 09:54] VITALS: BP 107/85; PULSE 80; RESP 18; TEMP 36.7; O2SAT 97; BMI 28.3
--- NOTE | 2023-05-18 09:54 | ECG_ITS ---
APPROVED REPORT Exam: Resting ECG HR:69 bpm ECG Measurements Heart Rate 69 AXES NC 151 P 77 QRSd 94 QRS 80 QT 357 T 62 QTc 375 Conclusion SINUS RHYTHM NORMAL ECG UNCONFIRMED REPORT Electronically signed by : Serjio Leon MD 05/19/2023 14:18:23
--- NOTE | 2023-05-18 09:55 | HMH.EDGENADL ---
Discharge Plan Disposition Patient Disposition: Home, Self-Care Condition: Good Prescriptions Prescriptions: No Action clonazepam [Klonopin] 0.5 mg tablet 0.5 mg PO BID Qty: 60 1RF citalopram [Celexa] 20 mg tablet 20 mg PO DAILY Qty: 30 2RF propranolol 120 mg capsule,extended release 24 hr 120 mg PO DAILY Qty: 30 2RF Referrals Follow up/Referrals: Carter Araya APRN [Primary Care Provider] - See instructions Activity Restrictions/Add. Instructions Additional Instructions/Restrictions: Please return to the emergency department if you experience any new or worsening symptoms. Clinical Impressions Clinical Impression: Acute chest pain Discharge ED Provider: Lito King General Adult HPI General Chief complaint: Chest Pain Stated complaint: chest pain Time Seen by Provider: 05/18/23 09:54 History of Present Illness HPI narrative: Patient presents with intermittent chest pain and palpitations that has been ongoing for several weeks, worsening in today, it is described as substernal and nonradiating in nature. There is no pleuritic component there is no hemoptysis or cough or dyspnea. No previous therapies. She has not had similar symptoms before, no history of DVT or PE or per family history. She does not take any control. Of note, per chart review, was prescribed propranolol and SSRI for history of anxiety but has not initiated this medication. Has history of gastric sleeve and has not been compliant with recommended p.o. supplements. She describes associated hair loss, some recent stressors. Related Data Previous Rx's Medication Instructions Recorded clonazepam 0.5 mg tablet (Klonopin) 0.5 mg PO BID #60 tabs 01/23/23 citalopram 20 mg tablet (Celexa) 20 mg PO DAILY #30 tabs 03/25/23 propranolol 120 mg capsule,24 120 mg PO DAILY #30 caps 03/25/23 hr,extended release Allergies Allergy/AdvReac Type Severity Reaction Status Date / Time No Known Allergies Allergy Verified 03/25/23 15:44 [facility] Disclaimer: The information contained in this section may have been updated after the patient was seen, as this information can be updated by other users. Medical History Anxiety Depression Endometriosis Surgical History H/O gastric sleeve History of cholecystectomy Family History Other Diabetes FHx: mental illness Social History Smoking Status: Never smoker alcohol intake: never substance use type: denies use current occupational status: unemployed Travel in the last 8 weeks: None ROS Obtained: Yes Systems reviewed as appropriate & no additional complaints except as documented As per HPI Physical Exam General General appearance: alert and in no apparent distress Head Head exam: atraumatic and normocephalic Eye Eye exam: Present normal appearance Neck Neck exam: Present normal inspection Chest Chest inspection: Present normal inspection and symmetric chest wall rise Respiratory Respiratory exam: Present normal lung sounds bilaterally; Absent respiratory distress Cardiovascular Cardiovascular exam: Present regular rate and normal rhythm Abdominal Exam Abdominal exam: Present soft Neurological Exam Neurological exam: Present alert and oriented X3 Psychiatric Psychiatric exam: Present normal affect and normal mood Skin Skin exam: Present warm and dry Medical Decision Making Medical Records Medical records reviewed: Yes I reviewed the patient's medical records. Eitan Inquiry Pt receiving controlled substance: No Vital Signs: 05/18/23 09:54 05/18/23 10:00 05/18/23 10:30 Temperature 98.1 F Temperature Source Oral Pulse Rate 72 79 Pulse Rate [Left Radial] 80 Respiratory Rate 18 17 16 Blood Pressure 1
[2023-05-18 10:00] VITALS: BP 125/79; PULSE 72; RESP 17; O2SAT 98
--- NOTE | 2023-05-18 10:09 | XR_ITS ---
PROCEDURE INFORMATION: Exam: XR Chest Exam date and time: 05/18/2023 11:18 AM Age: 27 years old Clinical indication: Other: Chest pain; Additional info: Chest pain, palpitations TECHNIQUE: Imaging protocol: Radiologic exam of the chest. Views: 2 views. COMPARISON: CR XR CHEST 2V 02/13/2023 1:05 PM FINDINGS: Lungs: No evidence of pneumonia or interstitial edema. Pleural spaces: Unremarkable. No pleural effusion. No pneumothorax. Heart/Mediastinum: Unremarkable. No cardiomegaly. Bones/joints: No visible acute fracture. IMPRESSION: 1. No evidence of pneumonia or interstitial edema. 2. No visible acute fracture.
[2023-05-18 10:17] LABS: Basophils % 0.3 % (0.1-2.0); Eosinophils # 0.1 K/mm3 (0.0-0.4); Eosinophils % 0.8 % (0.1-12.0); Hematocrit 37.6 % (37.0-47.0); Hemoglobin 12.8 g/dL (12.2-16.2); Lymphocytes # 2.2 K/mm3 (0.7-4.5); Lymphocytes % 27.6 % (10-50); Mean Corpuscular HGB Conc 33.9 g/dL (31.8-35.4); Mean Corpuscular Hemoglobin 28.1 pg (27.0-31.2); Mean Corpuscular Volume 82.7 fl (81-99); Mean Platelet Volume 8.7 fl (7.4-10.4); Monocytes # 0.3 K/mm3 (0.1-1.0); Monocytes % 4.2 % (1.7-9.3); Neutrophils # 5.3 K/mm3 (1.8-7.8); Platelet Count 220 K/mm3 (142-424); Red Blood Count 4.55 M/mm3 (4.20-5.40); Red Cell Distribution Width 13.5 % (11.5-17.5)
[2023-05-18 10:25] LABS: Chloride 106 mmol/L (98-107); Sodium 139 mmol/L (136-145)
[2023-05-18 10:27] LABS: Blood Urea Nitrogen 11 mg/dl (7-17); Creatinine Clearance Estimated 160 mL/min (50-200); Estimated Glomerular Filt Rate 119 ml/min (>60); GFR (African American) 144 ML/MIN (>60)
[2023-05-18 10:28] LABS: Alanine Aminotransferase 23 U/L (12-78); Albumin Level 4.4 g/dl (3.5-5.0); Albumin/Globulin Ratio 1.4 (1.1-1.8); Alkaline Phosphatase 74 U/L (38-126); Aspartate Amino Transferase 33 U/L (14-36); Bilirubin,Total 1.4 mg/dl (0.2-1.3); Calcium 8.8 mg/dl (8.4-10.2); Carbon Dioxide 27 mmol/L (22.0-30.0); Globulin 3.1 g/dL (1.3-3.2); Glucose 91 mg/dl (74-100); Total Protein,Serum 7.5 g/dl (6.3-8.2)
[2023-05-18 10:29] LABS: Magnesium 2.1 mg/dl (1.6-2.3); Phosphorous 4.2 mg/dl (2.5-4.5)
[2023-05-18 10:30] VITALS: BP 106/68; PULSE 79; RESP 16; O2SAT 99
[2023-05-18 10:43] LABS: Troponin I < 0.01 ng/ml (0.00-0.034)
[2023-05-18 10:59] LABS: Thyroid Stimulating Hormone 1.39 uIU/mL (0.465-4.68)
[2023-05-18 11:00] VITALS: BP 112/64; PULSE 73; RESP 18; O2SAT 98
[2023-05-18 11:14] LABS: HCG Qualitative, Serum Negative (Negative)
[2023-05-18 11:25] LABS: Free T4 (Free Thyroxine) 1.25 ng/dl (0.78-2.19)
[2023-05-18 12:08] VITALS: BP 112/64; PULSE 71; RESP 16; TEMP 36.7
== END 2023-05-18 12:10 | disposition home or self-care (01) ==
PROVIDERS: Emergency Provider Emergency Medicine; PCP Nurse Practitioner Family
DX: R07.2 Precordial pain (principal); F41.9 Anxiety disorder, unspecified; Z98.84 Bariatric surgery status
CPT/HCPCS: 71046; 80053; 83735; 84100; 84439; 84443; 84484; 84703; 85025; 93005; 99284

== ENCOUNTER 2023-09-24 18:16 | Emergency (ER) | payer BC, SELFPAY ==
[2023-09-24 18:30] VITALS: BP 117/65; PULSE 77; RESP 18; TEMP 36.8; O2SAT 97; BMI 30.9
--- NOTE | 2023-09-24 18:35 | EXP.UTC ---
Discharge Plan Disposition Patient Disposition: Home, Self-Care Condition: Good Prescriptions Prescriptions: New azithromycin [Zithromax] 250 mg tablet 250 mg PO UD DOSE PK Qty: 6 0RF Rx Instructions: Take two (2) tablets today, then one (1) tablet days #2 thru #5 [id number] [Bromfed DM] 2-30-10 mg/5 mL Syrup 5 ml PO Q6H PRN (Reason: Cough) Qty: 240 0RF No Action clonazepam [Klonopin] 0.5 mg tablet 0.5 mg PO BID Qty: 60 1RF citalopram [Celexa] 20 mg tablet 20 mg PO DAILY Qty: 30 2RF propranolol 120 mg capsule,extended release 24 hr 120 mg PO DAILY Qty: 30 2RF Referrals Follow up/Referrals: Carter Araya APRN [Primary Care Provider] - See instructions Activity Restrictions/Add. Instructions Additional Instructions/Restrictions: Drink plenty of fluids. Take tylenol or ibuprofen for pain or fever. Take the medications as directed. Follow up with your regular doctor. GO TO THE ER FOR ANY WORSENING SYMPTOMS Clinical Impressions Clinical Impression: Sinusitis, Acute viral syndrome Stand Alone Forms Stand Alone Forms: Work/School Release Instructions Patient Instructions: Sinusitis, DI for Sinusitis Discharge ED Provider: Arturo You [facility] General Stated complaint: cough congestion sinus pressure Mode of Arrival: Ambulatory Source of Information: Patient Limitations: No Limitations Time Seen by Provider: 09/24/23 18:35 Description of Symptoms (Recalled from Triage Doc. by RN): Pt's symptoms are sinus pressure, and drainage. HEENT Symptoms (Recalled from RN notes): Yes Resp Symptoms (Recalled from RN notes): No Skin Symptoms (Recalled from RN notes): No MS Symptoms (Recalled from RN notes): No Functional Status (Recalled from RN notes): n/a History of Present Illness Provider Complaint: She states that for the past 5 days she has had sinus congestion, scratchy throat, cough, and malaise. Related Data Previous Rx's Medication Instructions Recorded clonazepam 0.5 mg tablet (Klonopin) 0.5 mg PO BID #60 tabs 01/23/23 citalopram 20 mg tablet (Celexa) 20 mg PO DAILY #30 tabs 03/25/23 propranolol 120 mg capsule,24 120 mg PO DAILY #30 caps 03/25/23 hr,extended release azithromycin 250 mg tablet 250 mg PO UD DOSE PK #6 tabs 09/24/23 (Zithromax) [id number]-[id number]-UH 5 ml PO Q6H PRN Cough #240 mL 09/24/23 2 mg-30 mg-10 mg/5 mL oral syrup (Bromfed DM) Allergies Allergy/AdvReac Type Severity Reaction Status Date / Time No Known Allergies Allergy Verified 09/24/23 18:35 Worker's Comp Is this a Worker's Comp case?: No [facility] Disclaimer: The information contained in this section may have been updated after the patient was seen, as this information can be updated by other users. Medical History Anxiety Depression Endometriosis Surgical History H/O gastric sleeve History of cholecystectomy Family History Other Diabetes FHx: mental illness Social History Smoking Status: Never smoker alcohol intake: never substance use type: denies use current occupational status: unemployed Travel in the last 8 weeks: None ROS Obtained: Yes All systems reviewed & no additional complaints except as documented Constitutional Constitutional: Reports poor appetite Eyes Eyes: Reports system reviewed and no additional complaints, except as documented ENT Ears, Nose, Mouth, and Throat: Reports as per HPI Cardiovascular Cardiovascular: Reports system reviewed and no additional complaints, except as documented and Denies chest pain Respiratory Respiratory: Denies shortness of breath, Denies chest congestion, Reports cough, Denies stridor and Denies wheezing Gastrointestinal Gastrointestingal: Reports system reviewed and no additional complaints, except as documented; Denies abdominal pain, diarrhea or vomiting Musculoskeletal Musculoskeletal: Reports system reviewed and no additional complaints, except as documented and Denies arthralgias Integumentary/Breasts Skin/Breast: Reports system reviewed and no additional complaints, except as documented and Denies rash Neurologic Neurologic: Denies paresthesias Allergic/Immunologic Allergic/Immunologic: Denies wheezing Physical Exam General General appearance: alert and in no apparent distress Eye Eye exam: Present normal appearance, PERRL and EOMI ENT ENT exam: Present mucous membranes moist and normal external ear exam Expanded ENT Exam External ear exam: Present normal external inspection TM/Canal exam: Bilateral TM: erythema and bulging Nose exam: Absent sinus tenderness Nasal speculum exam: Bilateral: normal Mouth exam: Present normal external inspection; Absent drooling Teeth exam: Present normal inspection Throat exam: Present tonsillar erythema and tonsillomegaly Neck Neck exam: Present normal inspection, full ROM and trachea midline; Absent tenderness, lymphadenopathy or thyromegaly Chest Chest inspection: Present normal inspection and symmetric chest wall rise; Absent tenderness or rash Respiratory Respiratory exam: Present normal lung sounds bilaterally; Absent respiratory distress, wheezes, stridor or accessory muscle use Cardiovascular Cardiovascular exam: Present regular rate, normal rhythm and normal heart sounds Abdominal Exam Abdominal exam: Present soft; Absent distention, tenderness, guarding, rebound or rigidity Extremities Exam Extremities exam: Present normal inspection, full ROM and normal capillary refill; Absent tenderness or calf tenderness Back Exam Back exam: Present normal inspection and full ROM; Absent tenderness Neurological Exam Neurological exam: Present alert and oriented X3 Psychiatric Psychiatric exam: Present normal affect and normal mood Skin Skin exam: Present warm, dry, intact and normal color Lymphatic Lymphatic Findings: no adenopathy Medical Decision Making Medical Records Medical records reviewed: No I reviewed the patient's medical records. Eitan Inquiry Pt receiving controlled substance: No Vital Signs: 09/24/23 18:30 Temperature 98.3 F Temperature Source Oral Pulse Rate [Right Radial] 77 Respiratory Rate 18 Blood Pressure [Right Arm] 117/65 Blood Pressure Mean [Right Arm] 82 Blood Pressure Source [Right Arm] Automatic Cuff Blood Pressure Position [Right Arm] Sitting 02 Sat by Pulse Oximetry 97 Oxygen Delivery Method Room Air
[2023-09-24 19:33] VITALS: BP 117/65; PULSE 77; RESP 18; TEMP 36.8; O2SAT 97
== END 2023-09-24 19:33 | disposition home or self-care (01) ==
PROVIDERS: Emergency Provider Nurse Practitioner Family; PCP Nurse Practitioner Family
DX: J01.90 Acute sinusitis, unspecified (principal); R07.0 Pain in throat; R05.9 Cough, unspecified; R09.81 Nasal congestion
CPT/HCPCS: 99212; 99214; G0463

== ENCOUNTER 2023-12-19 16:53 | Emergency (ER) | payer BC, SELFPAY ==
[2023-12-19 17:10] VITALS: BP 126/67; PULSE 83; RESP 20; TEMP 36.8; O2SAT 98; BMI 31.7
[2023-12-19 17:27] LABS: UTC Strep Screen (Rapid) Positive (Negative)
--- NOTE | 2023-12-19 17:40 | EXP.UTC ---
Discharge Plan Disposition Patient Disposition: Home, Self-Care Condition: Good Prescriptions Prescriptions: New penicillin V potassium 500 mg tablet 500 mg PO BID Qty: 20 0RF Referrals Follow up/Referrals: Carter Araya APRN [Primary Care Provider] - See instructions Activity Restrictions/Add. Instructions Additional Instructions/Restrictions: *Monitor Temp, Over the counter Motrin or Tylenol as directed/as needed Tylenol every 4 hours and Motrin every 6 hours (as long as your family doctor has told you that you can take it) for fever or pain. and straight to ER if unable to lower temp less than 101.0 after medication given *Warm salt water gargles may help to soothe the throat *Throat Lozenges? *Warm fluids like tea with honey may help to soothe the throat? *Sleep elevated *Humidifier/Vaporizer *If you did not take Penicillin shot or was unable to, start taking antibiotic immediately and make sure that you take it for the FULL length of time although you should start to feel better in 24-48 hours *change toothbrush and toothpaste 24-48 hours after starting to take antibiotics so you do not reinfect yourself Monitor Temp. Tylenol and/or Ibuprofen as needed. ER if fever is no less than 101 despite alternating Tylenol and Ibuprofen * Encourage fluids, water, Gatorade, powerade, pedialyte if /toddler/or child *Cold fluids, popsicles and ice cream may feel good on his throat Follow up IMMEDIATELY for new or worsening symptoms or no Noticeable improvement over the next 48-72 hours. 911 for difficulty breathing or swallowing Clinical Impressions Clinical Impression: Strep throat Instructions Patient Instructions: DI for Strep Throat, Strep Throat Discharge ED Provider: Tiara Buenrostro [facility] [place] General Stated complaint: sore throat, white spots on throat, fever, BA Mode of Arrival: Ambulatory Source of Information: Patient Limitations: No Limitations Time Seen by Provider: 12/19/23 17:40 Description of Symptoms (Recalled from Triage Doc. by RN): PATIENT C/O SORE THROAT WITH WHITE PATCHES, FEVER AND BODY ACHES THAT STARTED YESTERDAY HEENT Symptoms (Recalled from RN notes): Yes Resp Symptoms (Recalled from RN notes): No Skin Symptoms (Recalled from RN notes): No MS Symptoms (Recalled from RN notes): No Functional Status (Recalled from RN notes): WNL History of Present Illness Provider Complaint: Patient states that she has been having scratchy throat for a couple of days but noticed yesterday that she had some blisters on her throat and looked like she had white patchy areas so she came in to get checked Related Data Previous Rx's Medication Instructions Recorded penicillin V potassium 500 mg 500 mg PO BID #20 tabs 12/19/23 tablet Allergies Allergy/AdvReac Type Severity Reaction Status Date / Time No Known Allergies Allergy Verified 09/26/23 15:53 Worker's Comp Is this a Worker's Comp case?: No [facility] Disclaimer: The information contained in this section may have been updated after the patient was seen, as this information can be updated by other users. Medical History (Updated 12/19/23 @ 17:43 by Tiara Buenrostro APRN) Anemia Liver disease Endometriosis Depression Anxiety Surgical History (Updated 12/19/23 @ 17:22 by Estela Ruano RN) History of ERCP H/O gastric sleeve History of cholecystectomy Family History Other Diabetes FHx: mental illness Social History Smoking Status: Never smoker alcohol intake: never substance use type: denies use current occupational status: unemployed Travel in the last 8 weeks: None ROS Obtained: Yes All systems reviewed & no additional complaints except as documented and Yes Systems reviewed as appropriate & no additional complaints except as documented Constitutional Constitutional: Reports system reviewed and no additional complaints, except as documented, Reports as per HPI, Reports body ache, Reports fever(s) and Reports headache(s) ENT Ears, Nose, Mouth, and Throat: Reports system reviewed and no additional complaints, except as documented, Reports as per HPI, Reports headache(s) and Reports sore throat Cardiovascular Cardiovascular: Reports system reviewed and no additional complaints, except as documented and Reports as per HPI Respiratory Respiratory: Reports system reviewed and no additional complaints, except as documented and Reports as per HPI Gastrointestinal Gastrointestingal: Reports system reviewed and no additional complaints, except as documented and as per HPI Neurologic Neurologic: Reports headache(s) Physical Exam General General appearance: alert and in no apparent distress ENT ENT exam: Present mucous membranes moist Expanded ENT Exam Throat exam: Present tonsillar erythema and tonsillar exudate Respiratory Respiratory exam: Present normal lung sounds bilaterally; Absent respiratory distress or wheezes Cardiovascular Cardiovascular exam: Present regular rate, normal rhythm and normal heart sounds Abdominal Exam Abdominal exam: Present soft and normal bowel sounds; Absent distention or tenderness Neurological Exam Neurological exam: Present alert, oriented X3 and normal gait Medical Decision Making Eitan Inquiry Pt receiving controlled substance: No Eitan was queried for this patient: No Vital Signs: 12/19/23 17:10 Temperature 98.2 F Temperature Source Oral Pulse Rate [Left Brachial] 83 Respiratory Rate 20 Blood Pressure [Left Arm] 126/67 Blood Pressure Mean [Left Arm] 86 Blood Pressure Source [Left Arm] Automatic Cuff Blood Pressure Position [Left Arm] Sitting 02 Sat by Pulse Oximetry 98 Oxygen Delivery Method Room Air Lab Data Lab results reviewed: Yes I reviewed the patient's lab results. Lab Results 12/19/23 17:17: Strep Scn Rapid Clinic Positive A
[2023-12-19 18:00] VITALS: BP 126/67; PULSE 83; RESP 20; TEMP 36.8; O2SAT 98
== END 2023-12-19 18:02 | disposition home or self-care (01) ==
PROVIDERS: Emergency Provider Nurse Practitioner; PCP Nurse Practitioner Family
DX: J02.0 Streptococcal pharyngitis (principal); R50.9 Fever, unspecified; R07.0 Pain in throat
CPT/HCPCS: 87880; 99212; 99214; G0463